=== PATIENT | female | born 1930 | race Caucasian/White ===

== ENCOUNTER 2019-03-20 12:27 | Observation (INO) ==
[2019-03-20 13:05] LABS: Basophils % 0.3 % (0.1-2.0); Eosinophils # 0.1 K/mm3 (0.0-0.4); Eosinophils % 1.9 % (0.1-12.0); Hematocrit 40.5 % (37.0-47.0); Hemoglobin 13.9 g/dL (12.2-16.2); Lymphocytes # 1.8 K/mm3 (0.7-4.5); Lymphocytes % 25.4 % (10-50); Mean Corpuscular HGB Conc 34.2 g/dL (31.8-35.4); Mean Corpuscular Hemoglobin 31.8 pg (27.0-31.2); Mean Corpuscular Volume 92.9 fl (81-99); Mean Platelet Volume 7.2 fl (7.4-10.4); Monocytes # 0.3 K/mm3 (0.1-1.0); Monocytes % 4.7 % (1.7-9.3); Neutrophils # 4.9 K/mm3 (1.8-7.8); Neutrophils % 67.7 % (37.0-80.0); Platelet Count 309 K/mm3 (142-424); Red Blood Count 4.36 M/mm3 (4.20-5.40); Red Cell Distribution Width 12.8 % (11.5-17.5); White Blood Count 7.2 K/mm3 (4.8-10.8)
[2019-03-20 13:15] LABS: Alanine Aminotransferase 27 U/L (12-78); Albumin Level 3.7 gm/dL (3.4-5.0); Alkaline Phosphatase 105 U/L (46-116); Anion Gap 10.6 mEq/L (5-15); Aspartate Amino Transferase 14 U/L (15-37); Bilirubin,Total 0.4 mg/dL (0.2-1.0); Blood Urea Nitrogen 13 mg/dL (7-18); Calcium 9.4 mg/dL (8.5-10.1); Carbon Dioxide 28 mmol/L (21.0-32.0); Chloride 105 mmol/L (98-107); Globulin 3.8 gm/dl (1.3-3.2); Glucose 96 mg/dL (74-106); Potassium 4.6 mmoL/L (3.5-5.1); Sodium 139 mmol/L (136-145); Total Protein,Serum 7.5 gm/dL (6.4-8.2)
--- NOTE | 2019-03-20 13:15 | Emergency Department Note ---
ED Disposition Clinical Impression: Syncope and collapse Disposition: Admitted as Observation Condition on Discharge: Good Referrals: Toribio Esparza MD [Primary Care Provider] - - Critical Care Critical Care Time: No Attestation: On 03/20/19, the high probability of a clinically significant, sudden or life threatening deterioration of the following system(s) required my full and direct attention, intervention and personal management. The time I documented below is in addition to time spent performing reported procedures but includes the following listed in this critical care notation. Medical Decision Making - Declan Inquiry Pt receiving controlled substance: No Vital Signs: 03/20/19 12:36 Pulse Rate [Right Brachial] 87 Respiratory Rate 19 Blood Pressure [Left Arm] 180/67 H Blood Pressure Mean [Left Arm] 104 Blood Pressure Source [Left Arm] Automatic Cuff Blood Pressure Position [Left Arm] Sitting 02 Sat by Pulse Oximetry 100 Oxygen Delivery Method Room Air - Lab Data Lab Results 03/20/19 12:50: WBC 7.2, RBC 4.36, Hgb 13.9, Hct 40.5, MCV 92.9, MCH 31.8 H, MCHC 34.2, RDW 12.8, Plt Count 309, MPV 7.2 L, Neut % (Auto) 67.7, Lymph % (Auto) 25.4, [place] % (Auto) 4.7, Eos % (Auto) 1.9, Baso % (Auto) 0.3, Neut # (Auto) 4.9, Lymph # (Auto) 1.8, [place] # (Auto) 0.3, Eos # (Auto) 0.1, Baso # (Auto) 0.0 03/20/19 12:50: Sodium 139, Potassium 4.6, Chloride 105, Carbon Dioxide 28, Anion Gap 10.6, BUN 13, Creatinine 1.02, Estimated Creat Clear 39, Estimated GFR 51 L, Est GFR ( Amer) 62, Glucose 96, Calcium 9.4, Total Bilirubin 0.4, AST 14 L, ALT 27, Alkaline Phosphatase 105, Troponin I < 0.02, Total Protein 7.5, Albumin 3.7, Globulin 3.8 H, Albumin/Globulin Ratio 1.0 L Result diagrams: 03/20/19 12:50 03/20/19 12:50 Orders (Tests/Meds): ORDERS Category Date Time Status Chest XR -- portable [XR chest portable] Stat Exams 03/20/19 12:43 Taken - CT Data CT Scan: Head Time Received: 13:[address] Reviewed: Yes: I have viewed the radiologist's interpretation Findings Narrative: IMPRESSION: Atrophy with chronic ischemic changes, no acute finding Dictated By: Justin Gill MD Signed By: <Electronically signed by Justin Gill MD in OV> 03/20/19 1331 - ECG Data Tracing #1 EKG interpreted by Nestor Hair MD: Rhythm: sinus Rate: 62 [place]: normal Ectopy: none Conduction: normal ST Segment Changes: none T Wave Changes: none Q Waves: none No evidence of acute ischemia or injury Normal electrocardiogram - Physician Consults Physician Consulted: Kinza Esparza Time: 13:55 Reason -: Admission Comment/Response: Agrees to admit the patient to the hospital. We discussed the patient's clinical information, including history, exam, laboratory and radiology results and ED course. Per hospital procedure, I will write temporary bridge inpatient orders on the patient. Specific orders requested by the admitting physician: environmental monitoring technician, cardiac Dopplers, echocardiogram General Adult HPI - General Chief complaint: Syncope Stated complaint: weak, AMS Time Seen by Provider: 03/20/19 13:15 Mode of Arrival: Wheelchair Limitations: No Limitations Description of Symptoms (Recalled from ER Triage Doc. by RN): had an episode that worried the daughter regarding whether or not she had had a mini-stroke. describes as a passing out-type episode; diaphoretic, eyes rolling back in head. last about a min or so. - History of Present Illness HPI narrative: Patient brought in by daughter. Daughter states that they were sitting on the porch together talking, patient said "oh my" and then became unresponsive. Eyes rolled back in her head and she was pale and cold to touch. Daughter rubs her on the back and spoke to her and eventually she came around and stated that she felt fine. She does not remember the episode. She does have dementia and recently was changed from Aricept to Aricept/Namenda combination. No other recent medication changes. No recent illness. She is on blood pressure medication. She is not having chest pain, shortness of breath, nausea, dizziness, or any other symptoms presently. No prior history of syncope. - Related Data Home Medications Medication Instructions Recorded Confirmed donepezil 10 mg tablet 10 mg PO QHS 02/04/18 levothyroxine 25 mcg tablet 25 mcg PO DAILY tab 02/04/18 lisinopril 10 mg tablet 10 mg PO DAILY tab 02/04/18 Previous Rx's Medication Instructions Recorded azithromycin 250 mg tablet 250 mg PO QDAY #6 tab 02/04/18 benzonatate 100 mg capsule 100 mg PO TID PRN #30 cap 02/04/18 Allergies Allergy/AdvReac Type Severity Reaction Status Date / Time No Known Allergies Allergy Verified 02/04/18 11:41 [facility] History - Hepatitis A Screen Drug use history?: No High risk sexual behaviors?: No History of sexually transmitted infection?: No Currently employed?: No Childcare worker?: No Do you have indoor plumbing?: Yes Do you have electricity?: Yes Attestation statement:: This patient has been screened for Hepatitis A risk factors. I have reviewed the patient's past medical history: Yes - Social History Smoking Status: Never smoker Alcohol Intake: never Substance Use Type: denies use ROS Obtained: Yes All systems reviewed & no additional complaints - Constitutional Constitutional: Denies fever(s) - Cardiovascular Cardiovascular: Denies chest pain, Reports fainting - Respiratory Respiratory: No cough, No dyspnea, No coughing up blood - Gastrointestinal Gastrointestingal: Denies: abdominal pain, diarrhea, vomiting - Neurologic Neurologic: Denies headache(s), Denies numbness, Denies weakness Physical Exam - General General appearance: alert, in no apparent distress - Head Head exam: atraumatic, normocephalic - Eye Eye exam: Present: normal appearance, PERRL, EOMI - ENT ENT exam: Present: mucous membranes moist - Neck Neck exam: Present: normal inspection, trachea midline. Absent: meningismus - Chest Chest inspection: Present: normal inspection, symmetric chest wall rise - Respiratory Respiratory exam: Present: normal lung sounds bilaterally. Absent: respiratory distress - Cardiovascular Cardiovascular exam: Present: regular rate, normal rhythm, normal heart sounds - Abdominal Exam Abdominal exam: Present: soft. Absent: distention, tenderness, guarding - Extremities Exam Extremities exam: Present: normal inspection, full ROM, other (Normal peripheral pulses). Absent: tenderness - Neurological Exam Neurological exam: Present: alert, oriented X3, CN II-XII intact. Absent: motor sensory deficit - Psychiatric Psychiatric exam: Present: normal affect, normal mood - Skin Skin exam: Present: warm, dry
--- NOTE | 2019-03-20 17:21 | Carotid Imaging Report ---
"Cerebrovascular Exam Indications: 780.2 Syncope and collapse. 781.2 Abnormality of gait. IMPRESSIONS 1. The bilateral vertebral arteries are patent with normal antegrade flow. 2. Study suggests less than 20% stenosis involving the right internal carotid artery and the left internal carotid artery. 3. Tortuous carotid arteries seen bilaterally. History: Syncope. PMH: Stroke (2011). Risk factors: Former smoker - years since quittinyr. Hypertension. Carotid duplex study. Complete study and Doppler flow study including spectral analysis, color and garcia scale imaging. Height: Height: 154.9cm. Height: 61in. Weight: Weight: 63.5kg. Weight: 139.7lb. Body mass index: BMI: 26.5kg/m^2. Body surface area: BSA: 1.67m^2. Patient status: Inpatient. Tables: Arterial flow: + +--------+--------+ |Location |V sys |V ed | + +--------+--------+ |Right CCA - proximal|74.6cm/s|11cm/s | + +--------+--------+ |Right CCA - distal |59.6cm/s|11.6cm/s| + +--------+--------+ |Right ECA |130cm/s |--------| + +--------+--------+ |Right ICA - proximal|77cm/s |22cm/s | + +--------+--------+ |Right ICA - mid |88cm/s |20.4cm/s| + +--------+--------+ |Right ICA - distal |95.1cm/s|22.8cm/s| + +--------+--------+ |Right vertebral |56.6cm/s|--------| + +--------+--------+ |Left CCA - proximal |98.2cm/s|16.5cm/s| + +--------+--------+ |Left CCA - distal |79.2cm/s|13.8cm/s| + +--------+--------+ |Left ECA |78.6cm/s|--------| + +--------+--------+ |Left ICA - proximal |62.9cm/s|21.4cm/s| + +--------+--------+ |Left ICA - mid |110cm/s |33.8cm/s| + +--------+--------+ |Left ICA - distal |85.6cm/s|21.2cm/s| + +--------+--------+ |Left vertebral |53.4cm/s|--------| + +--------+--------+ Velocity ratios: + + + + + + | |Right, V sys|Right, V ed|Left, V sys|Left, V ed| + + + + + + |Max ICA/dist CCA|1.6 |1.97 |1.39 |2.45 | + + + + + + (Report amended ) Electronically signed by: Justin Gill [id number]"
--- NOTE | 2019-03-21 07:32 | Pharmacy Consult Notes ---
[facility] Pharmacy VTE Monitoring - Patient Demographics Admission date: 03/20/19 Report Date: 03/21/19 Time: 07:32 Allergies/Adverse Reactions: Patient Allergies No Known Allergies Allergy (Verified 03/20/19 17:01) Height: 1.6 m Weight: 64.07 kg Patient Problems: Current Active Problems (Updated 03/20/19 @ 13:56 by Nestor Hair MD) Syncope and collapse (Acute) - VTE Risk Labs: VTE Related Lab Results Hgb 13.9 g/dL (12.2-16.2) 03/20/19 12:50 Hct 40.5 % (37.0-47.0) 03/20/19 12:50 Plt Count 309 K/mm3 (142-424) 03/20/19 12:50 BUN 13 mg/dL (7-18) 03/20/19 12:50 Creatinine 1.02 mg/dL (0.55-1.02) 03/20/19 12:50 Estimated Creat Clear 39 mL/min (50-200) 03/20/19 12:50 Was VTE Risk Assessment Performed: Yes VTE Score: 2 VTE Risk Level: Very Low Risk Clinical Trial Participant: No - Prophylaxis VTE Prophylaxis Ordered?: Yes Types of VTE Prophylaxis: TEDS Knee High Location of Applied Device: Bilateral Lower Extremeties
--- NOTE | 2019-03-21 07:42 | H&P/Discharge Summary ---
<Elvia Rodgers S - Last Filed: 03/21/19 16:40> General - General Admission date:: 03/20/19 Exam Vital signs and Labs for Last 24 Hours: Temp Pulse Resp BP Pulse Ox 97.9 F 75 18 181/74 H 94 L 03/21/19 16:00 03/21/19 16:00 03/21/19 16:00 03/21/19 16:00 03/21/19 16:00 I & O for Last 24 hours: Intake & Output 03/18/19 03/19/19 03/20/19 03/21/19 23:59 23:59 23:59 23:59 Intake Total 100 / 100 480 / 480 Balance 100 / 100 480 / 480 Weight 143 lb 2 oz 141 lb 4 oz Hospital Course Hospital Course: Echocardiogram revealed grade 2 diastolic dysfunction, and mild aortic, mitral and tricuspid regurgitation and an ejection fraction of 55% Carotid duplex showed less than 20% stenosis of the right internal carotid. Patient will be discharged home with daughter and follow up in the office March 27 at 930 am. Medication changes will include discontinuation of memantine/donepezil and the start of donepezil 10 mg daily. DS: Diagnosis - Discharge Diagnosis (1) Syncope and collapse Status: Acute Discharge Medications - Medications for Discharge Home Medication List at Discharge: Continued lisinopril 10 mg tablet 10 mg PO BID tab Levothyroxine Sodium [Levothyroxine 50mcg (0.05mg) Tab] 50 mcg PO DAILY Donepezil HCl [Aricept 10mg tablet] 10 mg PO QHS 30 Days #30 tab Discontinued Memantine HCl/Donepezil HCl [Namzaric 7 mg-10 mg Capsule] 1 each PO HS Disposition Disposition: Home, Self-Care <Toribio Esparza - Last Filed: 03/25/19 07:38> General - General Admission date:: 03/20/19 Discharge date: 03/21/19 *Admission Date: 03/20/19 *Chief complaint: Syncopal *History of present illness: 88-year-old female with history of dementia and hypertension was sitting at home having conversation with her daughter when she suddenly felt faint and soon after passed out. Patient's syncope was preceded by the patient saying "oh my" and then she lost consciousness for approximately a minute. Patient's daughter was with her and began rubbing her back vigorously to try to awaken her mother. She did witness her mother's eyes rolled back in her head but no tremors were noted. After minute the patient came to. EMS was called and patient came to hospital. In the emergency department patient was oriented. Work-up was unremarkable. Patient was admitted for observation on telemetry. Of note patient was placed on memantine in addition to her donepezil approximately 1 week ago [facility] History I have reviewed the patient's past medical history: Yes Medical History: Reports:: Hypertension Denies:: Cancer, Diabetes Mellitus Type 1, Diabetes Mellitus Type 2, MRSA *Have you ever received a pneumonia vaccine?: No *Have you received a flu vaccine this season?: No Other Medical History: Reports: Arthritis, Cataracts, Hypothyroidism, Thyroid Disease Comment:: Dementia Laterality Cases: Bilateral: Cataract Amputation: No - *Social History Educational Level: Completed Grade School Smoking Status: Former smoker Alcohol Intake: never Substance Use Type: denies use *Occupational Status:: retired *Travel in the last 8 weeks: None - Psychiatric History Expresses thoughts of harming self/others: None Suicide Plan Description: No Plan Family Hx:: No significant family history Review of Systems - Review of Systems Review of systems:: pertinent systems reviewed and negative unless documented below - Constitutional Denies body ache(s), Denies headache(s) - *Cardiovascular Denies chest pain, Denies chest pain at rest, Denies chest pain with activity, Denies shortness of breath, Denies shortness of breath with activity, Denies irregular heart rhythm - *Respiratory Denies change in phlegm color, Denies chest congestion - *Gastrointestinal Denies abdominal pain - *Neurologic Reports fainting, Denies abnormal walking, Denies abnormal hearing, Denies abnormal movements, Denies behavioral changes, Denies headache(s), Denies numbness, Denies weakness Comments: Hallucinations Exam Vital signs and Labs for Last 24 Hours: Temp Pulse Resp BP Pulse Ox 98.1 F 66 16 158/87 H 96 03/21/19 04:00 03/21/19 04:00 03/21/19 04:00 03/21/19 04:00 03/21/19 04:00 Laboratory Results - last 24 hr 03/20/19 12:50: WBC 7.2, RBC 4.36, Hgb 13.9, Hct 40.5, MCV 92.9, MCH 31.8 H, MCHC 34.2, RDW 12.8, Plt Count 309, MPV 7.2 L, Neut % (Auto) 67.7, Lymph % (Auto) 25.4, [place] % (Auto) 4.7, Eos % (Auto) 1.9, Baso % (Auto) 0.3, Neut # (Auto) 4.9, Lymph # (Auto) 1.8, [place] # (Auto) 0.3, Eos # (Auto) 0.1, Baso # (Auto) 0.0 03/20/19 12:50: Sodium 139, Potassium 4.6, Chloride 105, Carbon Dioxide 28, Anion Gap 10.6, BUN 13, Creatinine 1.02, Estimated Creat Clear 39, Estimated GFR 51 L, Est GFR ( Amer) 62, Glucose 96, Calcium 9.4, Total Bilirubin 0.4, AST 14 L, ALT 27, Alkaline Phosphatase 105, Troponin I < 0.02, Total Protein 7.5, Albumin 3.7, Globulin 3.8 H, Albumin/Globulin Ratio 1.0 L I & O for Last 24 hours: Intake & Output 03/18/19 03/19/19 03/20/19 03/21/19 11:59 11:59 11:59 11:59 Intake Total 100 / 100 Balance 100 / 100 Weight 141 lb 4 oz Narrative: Patient is awake and alert sitting up on the side of the bed eating breakfast this morning. Speech is fluent and clear. Daughter is present for interview and exam. HEENT exam is normal. Neck is without carotid bruits. Lungs are clear to auscultation. Heart has a regular rate and rhythm. Abdomen is soft. Extremities are warm to the touch. There are no focal neurologic deficit Hospital Course Hospital Course: Patient was admitted on telemetry monitoring. She did have mild bradycardia. There was no recurrent syncope. She was observed until the afternoon of March 21. Results Labs on day of discharge: Labs from last 24 hours 03/20/19 03/20/19 12:50 12:50 WBC 7.2 RBC 4.36 Hgb 13.9 Hct 40.5 MCV 92.9 MCH 31.8 H MCHC 34.2 RDW 12.8 Plt Count 309 MPV 7.2 L Neut % (Auto) 67.7 Lymph % (Auto) 25.4 [place] % (Auto) 4.7 Eos % (Auto) 1.9 Baso % (Auto) 0.3 Neut # (Auto) 4.9 Lymph # (Auto) 1.8 [place] # (Auto) 0.3 Eos # (Auto) 0.1 Baso # (Auto) 0.0 Sodium 139 Potassium 4.6 Chloride 105 Carbon Dioxide 28 Anion Gap 10.6 BUN 13 Creatinine 1.02 Estimated Creat Clear 39 Estimated GFR 51 L Est GFR ( Amer) 62 Glucose 96 Calcium 9.4 Total Bilirubin 0.4 AST 14 L ALT 27 Alkaline Phosphatase 105 Troponin I < 0.02 Total Protein 7.5 Albumin 3.7 Globulin 3.8 H Albumin/Globulin Ratio 1.0 L DS: Diagnosis - Discharge Diagnosis (1) Syncope and collapse Status: Acute
--- NOTE | 2019-03-21 14:38 | Cardiology Report ---
PROCEDURE: 2-D M-mode and color Doppler study INDICATIONS FOR THE TEST: Chest pain COPD Heart Murmur Tobacco Smokingex Palpitations Fatigue+ Syncope+ Edema Hypertension+Diabetes Mellitus Rheumatic Fever SOB CHANG Obesity Hyperlipidemia Family History HD Additional History PATIENT INFORMATION HEIGHT: 61 WEIGHT: 140 GENDER: Female B/P: 180/67 2-D/M-MODE INTERPRETATION: 2-D MEASUREMENTS OBSERVED VALUES IN CMS Right Ventricular Dimension (RVDd) 2.4 Interventricular Septum (Thickness)(IVsd) 0.9 Left Ventricular Internal Dimensions(LVIDd) 4.7 Left Ventricular Posterior Wall (Thickness)(LVPWd) 1.0 Aortic Root 2.3 Aortic Cusp Separation 2.0 Left Atrial Dimensions (LAD) 3.4 2D 1. Left atrium is mildly enlarged, left ventricle is normal size, mild concentric left ventricular hypertrophy, visually estimated ejection fraction 55% with no regional wall motion abnormality. 2. The right atrium and right ventricle are mildly enlarged with normal contractility. 3. The aortic valve is thickened and calcified leaflet continue to display mobility. 4. The mitral and tricuspid valvular minimally thickened. 5. The pulmonic valve is poorly present. 6. No significant pericardial effusion noted. DOPPLER INTERROGATION: Doppler interrogation of the aortic, mitral and tricuspid valvular presence of mild aortic, mild mitral and tricuspid regurgitation, calculated right ventricular systolic pressure is 50 mmHg consistent with moderate pulmonary hypertension, grade 2 diastolic dysfunction seen with tissue Doppler evidence of raised left atrial pressure. CONCLUSION: 1. Biatrial enlargement, normal left ventricular size, mild concentric left ventricular hypertrophy, visually estimated ejection fraction 55% with no regional wall motion abnormality, grade 2 diastolic dysfunction seen with tissue Doppler evidence of raised left atrial pressure. 2. Mildly enlarged right ventricle with normal contractility. 3. Mild aortic, mild mitral and tricuspid regurgitation, calculated right ventricular systolic pressure is 50 mmHg consistent with moderate pulmonary hypertension. 4. No significant pericardial effusion noted.
== END 2019-03-21 16:56 | disposition home or self-care (01) ==
LOC: 2ND 12:27 → ER 12:27 → 2ND 15:15
PROVIDERS: ADMIT Emergency Medicine; ATTEND Family Medicine
CPT/HCPCS: 70450; 71010; 71045; 80053; 84484; 85025; 93005; 93306; 93880; 99284; G0378